=== PATIENT | female | born 1975 | race Caucasian/White ===

== ENCOUNTER → 2016-12-14 | Emergency (ER) | payer MEDICAID | END | disposition home or self-care (01) | LOC: D.ER 14:43 | DX: Z02.9 Encounter for administrative examinations, unspecified (principal) ==

== ENCOUNTER 2017-02-26 23:48 | Emergency (ER) | payer MEDICAID | END 2017-02-27 01:01 | disposition home or self-care (01) | LOC: D.ER 23:48 | DX: S83.91XA Sprain of unspecified site of right knee, initial encounter (principal); W19.XXXA Unspecified fall, initial encounter ==

== ENCOUNTER 2017-03-10 08:18 | Emergency (ER) | payer MEDICAID | END 2017-03-10 11:18 | disposition home or self-care (01) | LOC: D.ER 08:18 | DX: S83.91XA Sprain of unspecified site of right knee, initial encounter (principal); W19.XXXA Unspecified fall, initial encounter; Y93.89 Activity, other specified; Y92.019 Unspecified place in single-family (private) house as the place of occurrence of the external cause ==

== ENCOUNTER 2017-11-05 11:46 | Emergency (ER) | payer MEDICAID | END 2017-11-05 14:33 | disposition home or self-care (01) | LOC: D.ER 11:46 | DX: M25.561 Pain in right knee (principal); S83.91XA Sprain of unspecified site of right knee, initial encounter; X50.1XXA Overexertion from prolonged static or awkward postures, initial encounter; Y93.89 Activity, other specified; Y92.019 Unspecified place in single-family (private) house as the place of occurrence of the external cause; F17.200 Nicotine dependence, unspecified, uncomplicated ==

== ENCOUNTER 2017-11-16 02:05 | Emergency (ER) | payer MEDICAID | END 2017-11-16 02:55 | disposition home or self-care (01) | LOC: D.ER 02:05 | DX: J06.9 Acute upper respiratory infection, unspecified (principal); J20.9 Acute bronchitis, unspecified; J02.9 Acute pharyngitis, unspecified; F17.200 Nicotine dependence, unspecified, uncomplicated ==

== ENCOUNTER 2018-03-18 11:38 | Emergency (ER) | payer MEDICAID ==
[~2018-03-18] VITALS: Ht 157.5 cm; Wt 72.7 kg
[2018-03-18 11:46] VITALS: Ht 157.5 cm; Wt 72.7 kg
[2018-03-18] MEDS ORDERED: PROVENTIL HFA6.7 GM INH (14:55)
[2018-03-18] MEDS ORDERED: VIBRAMYCIN 100100 MG PO (14:55)
[2018-03-18] MEDS ORDERED: PHENERGAN DM SYR5 ML PO (14:55)
[2018-03-18 15:59] VITALS: BP 117/66
== END 2018-03-18 15:41 | disposition home or self-care (01) ==
LOC: D.ER 11:38
DX: J01.90 Acute sinusitis, unspecified (principal); J20.9 Acute bronchitis, unspecified; J02.9 Acute pharyngitis, unspecified; F17.200 Nicotine dependence, unspecified, uncomplicated

== ENCOUNTER 2018-08-28 05:12 | Emergency (ER) | payer MEDICAID | END 2018-08-28 06:01 | disposition home or self-care (01) | LOC: D.ER 05:12 | DX: H60.01 Abscess of right external ear (principal); F17.200 Nicotine dependence, unspecified, uncomplicated ==

== ENCOUNTER 2019-03-27 14:14 | Emergency (ER) | payer MEDICAID ==
[~2019-03-27] VITALS: Ht 157.5 cm; Wt 75.0 kg
[~2019-03-27 14:14] MED LIST: CLEOCIN HCL300 MG PO; PHENERGAN DM SYR5 ML PO; PROVENTIL HFA6.7 GM INH; TYLENOL W/CODEI1 TAB PO; VIBRAMYCIN 100100 MG PO
[2019-03-27 14:33] VITALS: Ht 157.5 cm; Wt 75.0 kg
[2019-03-27] MEDS ORDERED: VOLTAREN75 MG PO (16:11)
[2019-03-27] MEDS ORDERED: BACLOFEN20 M1 PO (16:11)
[2019-03-27 17:48] VITALS: BP 112/53
== END 2019-03-27 16:45 | disposition home or self-care (01) ==
LOC: D.ER 14:14
DX: S49.91XA Unspecified injury of right shoulder and upper arm, initial encounter (principal); X50.9XXA Other and unspecified overexertion or strenuous movements or postures, initial encounter; Y93.89 Activity, other specified; Y92.89 Other specified places as the place of occurrence of the external cause; M25.511 Pain in right shoulder

== ENCOUNTER 2019-07-26 11:19 | Emergency (ER) | payer MEDICAID ==
[~2019-07-26] VITALS: Ht 157.5 cm; Wt 68.0 kg
[~2019-07-26 11:19] MED LIST changes: +BACLOFEN20 M1 PO; +VOLTAREN75 MG PO
[2019-07-26 11:31] VITALS: Ht 157.5 cm; Wt 68.0 kg
[2019-07-26 14:13] VITALS: BP 126/74
== END 2019-07-26 14:14 | disposition home or self-care (01) ==
LOC: D.ER 11:19
DX: G58.9 Mononeuropathy, unspecified (principal)

== ENCOUNTER 2020-05-08 03:36 | Emergency (ER) | payer SELFPAY ==
[~2020-05-08] VITALS: Ht 157.5 cm; Wt 65.9 kg
[2020-05-08 04:00] VITALS: BP 148/84; Ht 157.5 cm; Wt 65.9 kg
[2020-05-08] MEDS ORDERED: CORTISPORIN OTI10 M1 LEFT EAR (04:12)
== END 2020-05-08 04:26 | disposition home or self-care (01) ==
LOC: D.ER 03:36
DX: H60.92 Unspecified otitis externa, left ear (principal)

== ENCOUNTER 2020-07-01 00:32 | Emergency (ER) | payer MEDICAID ==
[~2020-07-01] VITALS: Ht 157.5 cm; Wt 57.3 kg
[~2020-07-01 00:32] MED LIST changes: +CORTISPORIN OTI10 M1 LEFT EAR
[2020-07-01 01:00] VITALS: Ht 157.5 cm; Wt 57.3 kg
[2020-07-01] MEDS ORDERED: VOLTAREN75 MG PO (01:57)
[2020-07-01 02:20] VITALS: BP 114/74
== END 2020-07-01 02:20 | disposition home or self-care (01) ==
LOC: D.ER 00:32
DX: S46.911A Strain of unspecified muscle, fascia and tendon at shoulder and upper arm level, right arm, initial encounter (principal); Y04.8XXA Assault by other bodily force, initial encounter; Y93.9 Activity, unspecified; Y92.9 Unspecified place or not applicable

== ENCOUNTER 2021-02-05 08:59 | Emergency (ER) | payer MEDICAID ==
[~2021-02-05] VITALS: Ht 157.5 cm; Wt 65.9 kg
[~2021-02-05 08:59] MED LIST changes: +ARTHROTEC EC 71 EACH PO; +MOBIC7.5 MG PO
[2021-02-05 09:10] VITALS: Ht 157.5 cm; Wt 65.9 kg
[2021-02-05] MEDS ORDERED: HYDROCODON-ACE1 EAC7 PO (10:32)
[2021-02-05] MEDS ORDERED: CYCLOBENZAPRINE10 MG PO (10:32)
[2021-02-05 10:41] VITALS: BP 113/62
== END 2021-02-05 10:46 | disposition home or self-care (01) ==
LOC: D.ER 08:59
DX: S39.012A Strain of muscle, fascia and tendon of lower back, initial encounter (principal); X50.0XXA Overexertion from strenuous movement or load, initial encounter; Y93.9 Activity, unspecified; Y92.9 Unspecified place or not applicable